=== PATIENT | female | born 1995 | race American Indian/Alaskan Native ===

== ENCOUNTER 2019-05-09 17:50 | Emergency (ER) | payer BC ==
[2019-05-09 18:54] VITALS: BP 112/70
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
== END 2019-05-09 22:00 | disposition home or self-care (01) ==
LOC: ED 17:50
DX: M54.5 Low back pain (principal); M25.512 Pain in left shoulder; J34.89 Other specified disorders of nose and nasal sinuses; Z91.013 Allergy to seafood; Z91.018 Allergy to other foods; V49.49XA Driver injured in collision with other motor vehicles in traffic accident, initial encounter; Y93.89 Activity, other specified; Y92.410 Unspecified street and highway as the place of occurrence of the external cause; Y99.8 Other external cause status
CPT/HCPCS: 72100